=== PATIENT | female | born 1995 | race African-American/Black ===

== ENCOUNTER 2018-04-29 10:11 | Emergency (ER) | payer OTHER ==
[2018-04-29] MEDS ORDERED: BIOTIN10 M1 PO (10:27)
[2018-04-29] MEDS ORDERED: MULIT-VITAMI PO (10:28)
[2018-04-29] MEDS ORDERED: MULTIVITAMI1 PO (10:43)
[2018-04-29 10:50] VITALS: BP 127/76
== END 2018-04-29 10:50 | disposition home or self-care (01) | DRG 103 ==
LOC: ED 10:11
DX: R51 Headache (principal)